=== PATIENT | male | born 1955 | race Caucasian/White ===

== ENCOUNTER 2017-04-28 12:44 | Emergency (ER) | payer OTHER ==
[2017-04-28 12:55] VITALS: BP 174/95
[2017-04-28] MEDS ORDERED: CEPH500C PO (13:28)
--- NOTE | 2017-04-28 13:28 | PHYS DOC ---
General Chief Complaint: LACERATION/AVULSION Stated Complaint: LEFT THUMB LACERATION WK COMP Time Seen by MD: 13:13 Source: patient Exam Limitations: no limitations Problems: History of Present Illness Initial Comments Patient is a 61-year-old male who comes for a work comp injury to his left thumb. Patient states that while working he was using an [employer] knife accidentally cutting the medial aspect of his left thumb at the IP joint. Bleeding was reportedly profuse initially however he washed the wound in a sink at work and applied a sterile dressing. On arrival hemostasis is spontaneous patient denies any discomfort. Patient also denies any numbness tingling weakness or radiating symptoms, the sharp blade was not new or clean and the patient is diabetic his last A1c reportedly 6.4. Patient is not up-to-date with tetanus he denies any other injuries or complaints. Onset: just prior to arrival Severity: mild Pain/Injury Location: left thumb Method of Injury: incised Modifying Factors: improves with other Past Medical History Medical History: diabetes, other Surgical History: noncontributory Social History Smoker: cigarettes Alcohol: none Drugs: none Review of Systems Constitutional: denies chills, denies fever Respiratory: denies cough, denies shortness of breath Cardiovascular: denies chest pain, denies palpitations Gastrointestinal: denies nausea, denies vomiting Musculoskeletal: see HPI Skin: see HPI Psychiatric/Neurological: see HPI Physical Exam General Appearance: WD/WN, no apparent distress Hand: laceration (very superficial linear 0.5 cm laceration medial aspect left thumb at the IP joint, no foreign bodies ligaments and tendon complexes are intact the extremity is neurovascularly intact. Wound edges are approximated on arrival there is no bruising or bleeding.) Neurologic/Tendon: normal sensation, normal motor functions, normal tendon functions, responds to pain, no evidence tendon injury Psychiatric: alert, oriented x 3 Skin: normal color, warm/dry (left thumb as above) Orders, Labs, Meds I discussed treatment options, sutures would be excessive but offered to the patient. He would need immobilization with or without sutures. When given options patient opts for tissue adhesive with metal finger splint and sterile dressing. Extremities neurovascularly intact after splint placed Departure Time of Disposition: 13:26 Disposition: 01 HOME, SELF-CARE Diagnosis: work comp left thumb laceration Condition: GOOD Patient Instructions: Tissue Adhesive Wound Care, [id number], VIS, Tetanus, Diphtheria (Td); Tetanus, Diphtheria, Pertussis (Tdap) - CDC Additional Instructions: Please review the patient education materials given by ED staff. Contact your employer regarding Worker's Compensation status. [id number] Tylenol as needed. Keep wound dry for 48 hours. After 48 hours may wash twice daily briefly with soap and warm water, blot dry. Change dressing and reapplied metal finger splint after each wash. Follow-up with your doctor in 7 days for recheck. Prescription: Cephalexin Return to ED with new or changing symptoms. MICHELLE RINALDI DO Apr 28, 2017 13:28
[2017-04-28] MEDS ORDERED: DIPHTH,PERTUSS(ACELL),TET TOX 0.5 ML DISP.SYRIN. VAX IM ONE (13:45)
== END 2017-04-28 14:35 | disposition home or self-care (01) ==
LOC: ER 12:44
DX: S61.012A Laceration without foreign body of left thumb without damage to nail, initial encounter (principal); E11.9 Type 2 diabetes mellitus without complications; F17.210 Nicotine dependence, cigarettes, uncomplicated; W26.0XXA Contact with knife, initial encounter; Y93.89 Activity, other specified; Y99.8 Other external cause status; Y92.89 Other specified places as the place of occurrence of the external cause
CPT/HCPCS: 12001; 90471; 90715; 99283-25